=== PATIENT | female | born 1955 | race Caucasian/White ===

== ENCOUNTER → 2022-04-23 08:30 | Outpatient (CLI) | payer OTHER, SELFPAY ==
--- NOTE | ~2022-04-23 | MMUS_ITS ---
EXAMINATION: MM diag jose m implant BI w krystal, US breast BI complete HISTORY: Bilateral dimpling; history of 3 sets of implants. History of keloids. TECHNIQUE: Implant displaced ML, MLO and CC 3-D tomosynthesis images of both breasts were performed a nd synthetic 2-D images were generated. Implant ML, MLO and CC views of both breasts. CAD analysis wa s submitted and interpreted. High resolution complete bilateral breast ultrasound examination includi ng all 4 quadrants and subareolar areas was performed. COMPARISON: None BREAST PARENCHYMAL COMPOSITION: There are scattered areas of fibroglandular density. FINDINGS: MAMMOGRAPHIC FINDINGS: There is bilateral retraction in the inferior subareolar areas. No suspicious mass or architectural d istortion is noted otherwise. No malignant calcification, skin thickening. ULTRASOUND: Bilateral augmentation mammoplasty. No suspicious mass, shadowing or suspicious vascularity of either breast is detected. IMPRESSION: 1. No mammographic or sonographic evidence of malignant breast mass is detected despite presence of b ilateral infra-areolar areas 2. Routine annual mammographic screening is recommended BI-RADS Category 2: Benign finding(s). Reviewed, dictated and finalized at location A. OMATIC COURIER IMPRESSION: 1. No mammographic or sonographic evidence of malignant breast mass is detected despite presence of bilateral infra-areolar areas 2. Routine annual mammographic screening is recommended BI-RADS Category 2: Benign finding(s).
== END ==
PROVIDERS: PCP Internal Medicine; Visit Provider Obstetrics & Gynecology Gynecology
DX: N64.59 Other signs and symptoms in breast (principal)
CPT/HCPCS: 76641; 77062; 77066; G0279

== ENCOUNTER 2022-06-10 09:54 | Emergency (ER) | payer OTHER, SELFPAY ==
--- NOTE | ~2022-06-10 | XR_ITS ---
XR hip RT min 2V DATE: 06/10/2022 10:59 INDICATION: Generalized hip pain for 2 weeks. No injury. TECHNIQUE: AP and lateral views of right hip COMPARISON: None FINDINGS: The right sacroiliac joint and pubic symphysis are intact. Right hip joint space appears we ll preserved. No fracture, dislocation, avascular necrosis or bone destruction of the right hip. IMPRESSION: No significant abnormality Reviewed, dictated and finalized at location B. IMPRESSION: No significant abnormality
[2022-06-10 10:02] VITALS: BP 104/51; PULSE 82; RESP 16; TEMP 36.6; O2SAT 98
[2022-06-10 11:06] VITALS: BP 114/64; PULSE 80; RESP 18; TEMP 36.6; O2SAT 100
--- NOTE | 2022-06-10 11:50 | ED.GENADULT ---
HPI - General Adult General Chief complaint: Extremity Injury, Lower <Randal Arredondo PA-C - Last Filed: 06/10/22 14:11> Stated complaint: hip pain <Randal Arredondo PA-C - Last Filed: 06/10/22 14:11> Time Seen by Provider: 06/10/22 10:46 <Randal Arredondo PA-C - Last Filed: 06/10/22 14:11> Source: patient <Randal Arredondo PA-C - Last Filed: 06/10/22 14:11> Mode of arrival: ambulatory <RAJESH Wilkins Last Filed: 06/10/22 14:11> Limitations: no limitations <Randal Arredondo PA-C - Last Filed: 06/10/22 14:11> History of Present Illness HPI narrative: This is a 67-year-old female with PMH of osteoporosis who presents to the ED with chief complaint of right hip pain x2 weeks. Denies any injury or trauma. Patient states she is able to ambulate but it is painful at times. Reports taking Advil at home with minimal relief. Reports that it is a muscle like pain in the thigh anteriorly and posteriorly. States that it is worse when she sits on soft surfaces and better when she sits on hard surfaces. She has a history of a left hip fracture and is looking to rule out any fractures today with her history of osteoporosis. She also has a history of sciatica and arthritis in the hands and states that it does not feel like those things. <Randal Arredondo PA-C - Last Filed: 06/10/22 14:11> Related Data Allergies/adverse reactions: Allergies Allergy/AdvReac Type Severity Reaction Status Date / Time No Known Allergies Allergy Verified 06/10/22 11:10 <Randal Arredondo PA-C - Last Filed: 06/10/22 14:11> Review of Systems Review of Systems: CONSTITUTIONAL: Denies fever, chills, or sweats. SKIN: Denies rash or itching. Denies wounds or erythema. Denies bruising. MUSCULOSKELETAL: See HPI NEUROLOGIC: Denies headache, numbness, dizziness, or weakness. PSYCHIATRIC: Denies anxiety or depression. <Randal Arredondo PA-C - Last Filed: 06/10/22 14:11> Exam Narrative: GENERAL: Well-appearing, well-nourished, and in no acute distress. EXTREMITIES: Right hip: Full active range of motion. Somewhat tender to the lateral trochanteric area. No overt skin changes or bruising. Left hip: Benign. MSK exam is otherwise benign. Normal range of motion. No edema throughout the bilateral lower extremities. She is ambulatory. SKIN: Warm, dry, no rash. No erythema. NEURO: Alert and oriented x3. No focal deficits. PSYCH: Normal mood and affect. <Randal Arredondo PA-C - Last Filed: 06/10/22 14:11> Course JAPANESE INTERPRETER/PA Physician Supervision This visit was performed by both a physician and an APC. I performed all aspects of the MDM as documented. <Francisco Lopez MD - Last Filed: 06/10/22 19:23> Vital Signs Vital signs: Vital Signs Temperature 97.9 F 06/10/22 10:02 Pulse Rate 82 06/10/22 10:02 Respiratory Rate 16 06/10/22 10:02 Blood Pressure 104/51 L 06/10/22 10:02 Pulse Oximetry 98 06/10/22 10:02 Oxygen Delivery Room Air 06/10/22 10:02 Temperature 97.9 F 06/10/22 11:06 Pulse Rate 80 06/10/22 11:06 Respiratory Rate 18 06/10/22 11:06 Blood Pressure 114/64 06/10/22 11:06 Pulse Oximetry 100 06/10/22 11:06 Oxygen Delivery Room Air 06/10/22 11:06 <Randal Arredondo PA-C - Last Filed: 06/10/22 14:11> Vital Signs Temperature 97.9 F 06/10/22 10:02 Pulse Rate 82 06/10/22 10:02 Respiratory Rate 16 06/10/22 10:02 Blood Pressure 104/51 L 06/10/22 10:02 Pulse Oximetry 98 06/10/22 10:02 Oxygen Delivery Room Air 06/10/22 10:02 Temperature 97.9 F 06/10/22 11:06 Pulse Rate 80 06/10/22 11:06 Respiratory Rate 18 06/10/22 11:06 Blood Pressure 114/64 06/10/22 11:06 Pulse Oximetry 100 06/10/22 11:06 Oxygen Delivery Room Air 06/10/22 11:06 <Francisco Lopez MD - Last Filed: 06/10/22 19:23> Medical Decision Making MDM Narrative Medical decision making narrative: This is a 67-year-old female presents the to the ED wit
== END 2022-06-10 12:13 | disposition home or self-care (01) ==
PROVIDERS: Emergency Provider Physician Assistant; PCP Internal Medicine
DX: M79.651 Pain in right thigh (principal)
CPT/HCPCS: 73502; 99283

== ENCOUNTER 2023-03-06 08:09 | Emergency (ER) | payer OTHER, SELFPAY ==
--- NOTE | ~2023-03-06 | XR_ITS ---
XR chest 1V portable DATE: 03/06/2023 08:59 INDICATION: Cough TECHNIQUE: Portable AP chest on 03/06/2023 at 0854 hours COMPARISON: None FINDINGS: Normal heart size. Aortic arch calcification. No hilar or mediastinal enlargement. The lungs appear moderately hyperinflated but clear of infiltrate or consolidation. No pleural effusi on. No pneumothorax. Diffuse osteopenia. Dextroscoliosis of the thoracic spine. IMPRESSION: No active cardiopulmonary disease Moderate hyperinflation Aortic calcification Osteopenia Reviewed, dictated and finalized at location L. E PRACTICAL
[2023-03-06 08:13] VITALS: BP 134/57; PULSE 88; RESP 26; TEMP 36.4; O2SAT 98
[2023-03-06 08:28] VITALS: O2SAT 98
[2023-03-06 09:40] LABS: Influenza A QL RT-PCR Negative (Negative); Influenza B QL RT-PCR Negative (Negative); RSV RNA, RT-PCR Positive (Negative); SARS-CoV-2 RNA PCR Negative (Negative)
[2023-03-06] MEDS: IPRATROPIUM BR 0.02% INH SOLN 0.5 MG/2.5 ML VIAL INHALATION (09:49)
[2023-03-06 09:50] VITALS: PULSE 73; RESP 22
[2023-03-06] MEDS: ALBUTEROL SULFATE NEB 2.5 MG/3 ML INH INHALATION (09:50)
[2023-03-06 10:03] VITALS: PULSE 85; RESP 16
--- NOTE | 2023-03-06 10:07 | ED.GENADULT ---
HPI - General Adult General Chief complaint: Upper Respiratory Infection Stated complaint: SICK X 2 WEEKS Time Seen by Provider: 03/06/23 08:27 History of Present Illness HPI narrative: Patient is a 67-year-old female who presents ER with cough for 2 weeks. She has night sweats. No chest pain chest pressure. Cough is nonproductive but feels like it settled in her chest. No exertional dyspnea. No loss consciousness. Related Data Home Medications Medication Instructions Recorded Confirmed alprazolam 0.5 mg tablet (Xanax) 0.5 mg PO BID 10/01/22 03/06/23 buspirone 30 mg tablet 30 mg PO BID 10/01/22 03/06/23 denosumab 60 mg/mL subcutaneous 60 mg subcut [id number] 10/01/22 03/06/23 syringe (Prolia) escitalopram oxalate 20 mg tablet 20 mg PO DAILY 10/01/22 03/06/23 (Lexapro) lamotrigine 25 mg tablet 25 mg PO DAILY 10/01/22 03/06/23 lithium carbonate 450 mg 450 mg PO DAILY 10/01/22 03/06/23 tablet,extended release nortriptyline 25 mg capsule 25 mg PO BID 10/01/22 03/06/23 omeprazole 40 mg capsule,delayed 40 mg PO DAILY 10/01/22 03/06/23 release Allergies Allergy/AdvReac Type Severity Reaction Status Date / Time codeine Allergy Nausea Verified 03/06/23 08:25 erythromycin Allergy Other Uncoded 03/06/23 08:25 Review of Systems Constitutional: Constitutional: Denies chills and Denies fever(s) Comments: + night sweats ENT: Denies nasal congestion and Reports sore throat Respiratory: Respiratory: Reports chest congestion, Reports cough, Denies dyspnea and Reports wheezing [facility] Past Medical History Medical History (Updated 03/06/23 @ 18:04 by Francisco Lopez MD) Irritable bowel syndrome Family History Family History (Updated 10/01/22 @ 08:24 by Alondra Infante CMA) Father Cancer Father Hypertension Depression Heart disease Cerebrovascular accident Mother Asthma Thyroid disorder Other Diabetes mellitus Social History Social History (Updated 10/01/22 @ 08:10 by Alondra Infante CMA) Smoking status: Never smoker Alcohol intake: never Substance use: never Substance use type: does not use Lack of Transportation: No Lack of Food: Never True Current Housing: I Have Housing Concerned About Future Housing: No Difficulty Paying Gas/Electric Bills: No Difficulty Paying for Meds: No Currently Unemployed: No Education: High School Diploma/GED Exam Narrative: GENERAL: Well-appearing, well-nourished, and in no acute distress. HEAD: Normocephalic, atraumatic. CHEST: Basilar rales/ wheezing with coughing but otherwise clear. No respiratory distress. HEART: Regular rate and rhythm. Normal peripheral pulses. ABDOMEN: Soft, nontender, nondistended. EXTREMITIES: Normal range of motion. No edema. SKIN: Warm, dry, no rash. NEURO: Alert and oriented x3. PSYCH: Normal mood and affect. Course Course Emergency Course: discussed diagnosis and treatment plan. Improved coughing with nebulizer treatment. Discharge with steroids and albuterol. Vital Signs Vital signs: Vital Signs Temperature 97.5 F L 03/06/23 08:13 Pulse Rate 88 03/06/23 08:13 Respiratory Rate 26 H 03/06/23 08:13 Blood Pressure 134/57 L 03/06/23 08:13 Pulse Oximetry 98 03/06/23 08:13 Oxygen Delivery Room Air 03/06/23 08:13 Temperature 98.6 F 03/06/23 10:19 Pulse Rate 81 03/06/23 10:19 Respiratory Rate 16 03/06/23 10:19 Blood Pressure 120/59 L 03/06/23 10:19 Pulse Oximetry 98 03/06/23 10:19 Oxygen Delivery Room Air 03/06/23 08:28 Medical Decision Making Vital Signs Vital Signs: Vital Signs Temperature 97.5 F L 03/06/23 08:13 Pulse Rate 88 03/06/23 08:13 Respiratory Rate 26 H 03/06/23 08:13 Blood Pressure 134/57 L 03/06/23 08:13 Pulse Oximetry 98 03/06/23 08:13 Oxygen Delivery Room Air 03/06/23 08:13 Temperature 98.6 F 03/06/23 10:19 Pulse Rate 81 03/06/23 10:19 Respiratory Rate 16 03/06/23 10:1
[2023-03-06 10:19] VITALS: BP 120/59; PULSE 81; RESP 16; TEMP 37; O2SAT 98
== END 2023-03-06 10:21 | disposition home or self-care (01) ==
PROVIDERS: Emergency Provider Emergency Medicine
DX: J20.5 Acute bronchitis due to respiratory syncytial virus (principal); Z20.822 Contact with and (suspected) exposure to COVID-19; K58.9 Irritable bowel syndrome, unspecified; M85.88 Other specified disorders of bone density and structure, other site; I70.0 Atherosclerosis of aorta
CPT/HCPCS: 71045; 87637; 94640; 99283

== ENCOUNTER 2024-07-13 11:10 | Outpatient (CLI) | payer OTHER, SELFPAY ==
--- NOTE | ~2024-07-13 | XR_ITS ---
Left foot Technique: AP, oblique, and lateral views were obtained. Clinical History: Pain Findings: No acute fracture or dislocation is seen. Osseous alignment is anatomic. There is degenerat reese change at the interphalangeal joint of the great toe. Soft tissues are unremarkable. Impression: Degenerative change of the interphalangeal joint of the great toe. Reviewed, dictated and finalized at location . Impression: Degenerative change of the interphalangeal joint of the great toe.
--- OUTSIDE RECORDS SUMMARY | 2024-07-13 11:18 | XMS_ITS | Encounter Summary ---
Author Organization [facility] Address [address] [place] [address] Care Team Providers Care Consulting Technical Director Name Role Phone Hardy Child MD Unavailable Jose Coelho MD Unavailable [phone] Italia Villaseñor MD Unavailable Ryder Segundo MD Unavailable [phone] Dale Abreu MD Primary Care Provider Mira Daly MD Unavailable Pcp, [facility] Primary Care Provider Unavailable Luis Enrique Jarquin MD Primary Care Provider [phone] Luis Enrique Jarquin MD Unavailable [phone] German Escalante Unavailable German Escalante Unavailable Marisel Posada Unavailable [phone] Encounter Details Date Type Department Care Team (Late st Contact Info) Description 10/21/2022 Telephone [facility] - Centralized Scheduling [address] [place] [id number] Mira Garcia MD [address] [place] [address] Social History Tobacco Use Types Packs/Day Years Used Date Smoking Tobacco: Never Smokeless Tobacco: Never Alcohol Use Standard Drinks/Week Comments No 0 (1 standard drink = 0.6 oz pur e alcohol) PHQ-2 Answer Date Recorded PHQ2 TOTAL SCORE 0 03/27/2022 Comments No Sex and Gender Information Value Date Recorded Sex Assigned at Not on file Legal 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 Gender Identity Not on file Sexual Orientation Not on file 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 Author Yearly PCP visit Lifestyle No Ermelinda Mercado, REAL ESTATE UNDERWRITER documented as of this encounter Visit Diagnoses Not on filedocumented in this encounter Care Teams Consulting Technical Director Relationship Specialty Start Date End Date Dale Abreu MD [facility] [address] PCP - General Internal Medicine 04/25/21 04/02/23 Pcp, [facility] PCP - General 04/03/23 05/01/23 Luis Enrique Jarquin MD [address] [place] [address] [place] [id number] PCP - General Internal Medicine 05/02/23 Luis Enrique Jarquin MD [address] [place] [address] [place] [phone] PCP - Attributed-Essence MA [facility] 02/24/23 Hardy Child MD [address] [place] [address] Psychiatry 06/09/17 Jose Coelho MD [address] [place] [phone] Endocrinology 06/09/17 Italia Villaseñor MD [address] [facility] [address] [place] [phone] Gastroenterology 03/15/20 [place] [address] [facility] [address] [place] [address] Otolaryngology 03/21/21 Mira Daly MD [address] [place] [address] Physician Obstetrics and Gynecology 03/27/22 German Escalante Care Coordination Specialist Care Management 08/04/23 08/04/23 German Escalante Care Coordination Specialist Care Management 08/06/23 08/06/23 Marisel Posada Care Coordination Specialist Care Management 02/13/24 02/13/24 documented as of this encounter
--- OUTSIDE RECORDS SUMMARY | 2024-07-13 11:18 | XMS_ITS | Clinical Summary ---
Author Organization [facility] Address [address] [place] [address] Care Team Providers Care Brim Presser Name Role Phone Jose Blanco MD Primary Care Provider [phone] Edmundo Gary MD Unavailable [phone] Allergies Active Allergy Reactions Criticality Noted Date Comments Codeine Nausea & Vomiting,Nausea only Low 2016 Erythromycin Nausea & Vomiting Low 04/10/2016 Medications escitalopram (LEXAPRO) 20 mg tablet 20 mg. 0 0 08/11/19 14 Active Additional Information Patient not taking.Reported on 03/24/2024 busPIRone (BUSPAR) 30 mg tablet 30 mg. 0 0 08/11/19 14 Active lamoTRIgine (LaMICtal) 25 mg tablet take 1 tablet by oral route 2 times every day 0 0 08/24/19 15 Active lithium ER (ESKALITH) 450 mg CR tablet 450 mg. 0 0 08/11/19 14 Active nortriptyline (PAMELOR) 25 mg capsule 12/20/19 17 Active omeprazole (PriLOSEC) 40 mg capsule 12/20/19 17 Active cholecalciferol (VITAMIN D-3) 91453 unit capsule Take 1,000 Units by mouth daily Pt takes 1000 international units daily Active cetirizine (ZyrTEC) 10 mg tablet daily Active hyoscyamine ER (LEVBID) 0.375 mg 12 hr tablet Take 1 tablet (0.375 mg total) by mouth every 12 (twelve) hours as needed 11/29/19 23 Active ondansetron ODT (ZOFRAN-ODT) 8 mg disintegrating tablet DISSOLVE ONE TABLET ON THE TONGUE THREE TIMES DAILY 01/23/20 23 Active scopolamine 1 mg over 3 days patch 3 day APPLY 1 PATCH TOPICALLY TO THE SKIN EVERY 72 HOURS NEEDED 12/01/19 23 Active azithromycin (ZITHROMAX) 250 mg tablet TAKE 2 TABLETS BY MOUTH TODAY, THEN TAKE 1 TABLET DAILY FOR 4 DAYS DIRECTED 03/04/19 25 Active bisacodyl EC (DULCOLAX EC) 5 mg EC tablet PLEASE SEE ATTACHED FOR DETAILED DIRECTIONS 07/02/19 24 Active methylPREDNISolone (MEDROL) 4 mg tablet Take by mouth as directed 12/18/19 24 Active methylPREDNISolone (MEDROL DOSEPACK) 4 mg Dosepack TAKE 6 TABLETS ON DAY 1 DIRECTED ON PACKAGE AND DECREASE BY 1 TAB EACH DAY FOR A TOTAL OF 6 DAYS 12/18/19 24 Active polyethylene glycol (MIRALAX) 17 gram/dose bulk powder PLEASE SEE ATTACHED FOR DETAILED DIRECTIONS 07/02/19 24 Active Active Problems Problem Noted Date Diagnosed Date Osteoporosis 11/11/2017 Bipolar affective disorder 08/10/2013 Overview (05/30/2016): Bipolar reaction Mixed anxiety depressive disorder 08/10/2013 Overview (05/30/2016): Anxiety depression Encounters Date Type Department Care Team Description 05/07/2024 9:00 AM CDT Infusion [facility] [address] [place] [address] Advanced Medicine [address] [place] [phone] Osteoporosis, unspecified osteoporosis type, unspecified pathological fracture presence (Primary Dx); Age-related osteoporosis without current pathological fracture 05/03/2024 Orders Only [facility] Special[facility] Infusion [facility] [address] [facility] Advanced Medicine [address] [place] [address] Jaime Sandy RN 04/30/2024 12:00 PM CONE WORKER [facility] ([facility]) [address] [place] [phone] Age-related osteoporosis without current pathological fracture 04/28/2024 Telephone [facility]fusion [facility] [address] [facility] 7th [place] [address] Kaila Braun RN from Last 3 Months Immunizations Immunization Administration Dates Next Due Moderna SARS-CoV-2 Monovalent Vaccination (12+ Y RS) 08/16/2020,07/19/2020 Surgical History Surgery Date Site/Laterality Comments HIP SURGERY OOPHORECTOMY SECTION MASTOIDECTOMY TEMPOROMANDIBULAR JOINT ARTHROPLASTY FRACTURE SURGERY Left hip Medical History Medical History Date Comments Bipolar 1 disorder (HCC) Anxiety Menopause ovarian failure Osteoporosis GERD (gastroesophageal reflux disease) Other specified anxiety disorders Depression with anxiety - (Added by TW Conv) Personal history of diseases of the blood and blood-forming organs and certain disorders involving the immune mechanism History of an emia - (Added by TW Conv) Personal history of healed t raumatic fracture History of fracture of hip - (Added by TW Conv) Personal history of healed t raumatic fracture History of fracture of lower extremity - (Added by TW Conv) Disease of intestine Bowel troub le - (Added by TW Conv) Arthritis History of transfusion 1985 Family History Medical History Relation Name Comments Osteoporosis Mother Other Other 1 No family histo ry of Cancer, breast; Other Other 2 No family histo ry of Cancer, cervical; Other Other 3 No family histo ry of Cancer, colon; Other Other 4 No family histo ry of Cancer, uterine; Osteoporosis Sister Hip fracture Neg Hx Relation Name Status Comments Mother Other 1 Other 2 Other 3 Other 4 Sister Social History Tobacco Use Types Packs/Day Years Used Date Smoking Tobacco: Never Smokeless Tobacco: Never Alcohol Use Standard Drinks/Week Comments No 0 (1 standard drink = 0.6 oz pur e alcohol) Hunger Vital Sign Answer Date Recorded Within the past 12 months, y ou worried that your food would run out before you got the money to buy more. Never true 05/08/19 25 Within the past 12 months, t he food you bought just didn't last and you didn't have money to get more. Never true 05/07/2024 Personal Safety Answer Date Recorded Have you ever been in or are you currently in a harmful physical or emotional relationship or is someone making you feel afraid or unsafe? Denies 05/07/2024 Comments No Sex and Gender Information Value Date Recorded Sex Assigned at Not on file Legal Sex Female 1:35 AM CONE WORKER Gender Identity Female 12/29/2017 10:13 AM CONE WORKER Sexual Orientation Not on file Obstetrics History Para Term AB IAB SAB Ectopic Multiple Livin g Live Births 4 4 Date Outcome GA Total Labor Labor/2nd/3rd Weight Sex Type Anes PTL Sharmila A1 A5 Name Clin Para Para Para Para Last Filed Vital Signs Vital Sign Reading Time Taken Comments Blood Pressure 122/52 05/07/2024 9:50 AM CDT Pulse 58 05/07/2024 9:50 AM CDT Temperature 36.2 C (97.2 F) 05/07/2024 8:44 AM CDT Respiratory Rate 16 05/07/2024 9:50 AM CDT Oxygen Saturation 100% 05/07/2024 9:50 AM CDT Inhaled Oxygen Concentration - - Weight 49.1 kg (108 lb 3.2 oz) 05/07/2024 8:44 A M CDT Height 162.6 cm (5' 4 ) 03/24/2024 10:29 AM CONE WORKER Body Mass Index 18.57 03/24/2024 10:29 AM CONE WORKER Plan of Treatment Health Maintenance Due Date Last Done Comments Depression Screening 1955 Fall Risk Assessment 1955 Hepatitis C Screening 1955 Hepatitis B Screening 05/23/1975 Pneumococcal vaccine 65+ (1 of 1 - PCV) 05/23/2007 Breast Cancer Screening-Mammogram 03/24/2020 03/24/2019, 12/27/2016, 12/27/2016, Additional history exists Well Visit 65+ 2022 12/27/2016 Covid-19 Vaccine (3 - 2023-2 5 season) 2023 08/16/2020, 07/19/2020 Influenza Vaccine (Season Ended) 2024 01/27/2022, 12/08/2021, 12/06/2020, Additional history exists DTaP/Tdap/Td Vaccine (3 - Td or Tdap) 11/10/2024 11/10/2014, 10/25/2014 Osteoporosis Screening-Bone Density Scan 03/24/2026 03/24/2024, 02/11/2023, 01/22/2022, Additional history exists Colon Cancer Screening-Colonoscopy 07/25/2026 07/25/2016 Colon Cancer Screening-CT Colonography Discontinued 07/25/2016 Colon Cancer Screening-DNA Stool Discontinued 07/26/19 17 Colon Cancer Screening-FIT Discontinued 07/25/2016 Colon Cancer Screening-Sigmoidoscopy Discontinued 07/25/2016 Zoster Vaccine Completed 09/01/2019, 03/15/2019 Procedures Procedure Name Priority Date/Time Associated Diagnosis Comments EGFR Routine 04/30/2024 11:12 AM CONE WORKER Age-related osteoporosis without current pathological fracture CREATININE Routine 04/30/2024 11:12 AM CONE WORKER Age-related osteoporosis without current pathological fracture DEXA TBS AXIAL SKELETON BONE DENSITY 1 OR MORE SITES Schedule Routine, Read Routine (OP Routine) 03/24/2024 10:39 AM CONE WORKER Age-related osteoporosis without current pathological fracture HM MAMMOGRAPHY Routine 12/27/2016 HM COLONOSCOPY Routine 07/25/2016 from Last 3 Months or Most Recently Relevant to Health Maintenance Results * (ABNORMAL) eGFR (04/30/2024 11:12 AM CONE WORKER) eGFR 58(L) >=60 mL/min/1. 73 m2 Comment: Interpretive Data Reference Interval Normal >/= 90 mL/min/1.73m2 Mildly decreased* 60 - 89 mL/min/1.73m2 Mildly to moderately decreased 45 - 59 mL/min/1.73m2 Moderately to severely decreased 30 - 44 mL/min/1.73m2 Severely decreased 15 - 29 mL/min/1.73m2 Kidney Failure < 15 mL/min/1.73m2 *Relative to young adult level Estimated glomerular filtration rate is determined by the 2020 CKD-EPI equation recommended by the National Kidney Foundation (A Unifying Approach to GFR Estimation: Recommendations of the NKF-ASK Task Force on Reassessing the Inclusion of Race in Diagnosing Kidney Disease, JASN 202). The CKD-EPI equation should not be used for patients with unstable renal function and has not been validated in children and those over 70. Current interpretive data was last reviewed 2020. Blood 04/30/2024 11:1 2 AM CONE WORKER 04/30/2024 11:28 AM CONE WORKER Laila Frederick NP LAB BLOOD ORDERABLES Final Re sult Performing Organization Address City/[facility] Co de Phone Number LEENA MARCH Charanjit [facility] [place] [address] * Creatinine (04/30/2024 11:12 AM CONE WORKER) Creatinine 1.06 0.60 - 1.10 mg/dL Blood 04/30/2024 11:1 2 AM CONE WORKER 04/30/2024 11:28 AM CONE WORKER Laila Frederick NP LAB BLOOD ORDERABLES Final Re sult Performing Organization Address [facility] Co de Phone Number LEENA [facility] [place] [address] * Dexa TBS Axial Skeleton Bone Density 1 or more sites (03/24/2024 10:39 AM CONE WORKER) Anatomical Region Laterality Modality Wrist, Body N/A Radiographic Kiesha ging Narrative 03/24/2024 10:50 AM CONE WORKER Patient Name: Deepail Michaels Date of : 1955 Date of scan: 03/24/2024 Bone mineral density was performed on a [employer] Discovery Densitometer. Based on machine cross-calibration and precision studies the least significant changes of this densitometer is 0.024 g/cm2 at the spine, 0.020 g/cm2 at the total proximal femur, and 0.014g/cm2 at the forearm. HISTORY: This is a 68 y.o. postmenopausal female with a history of osteoporosis and vitamin D deficiency. She reports that she has never smoked. She has never used smokeless tobacco. Currently on treatment with vitamin D and romosozumab ([facility]) and previously treated with risedronate (Actonel), denosumab ([facility]), and hormone replacement therapy. INDICATIONS: Menopause status, treatment monitoring, history of prior left hip fracture, and history of osteoporosis. FINDINGS: BONE MINERAL DENSITY OF THE LUMBAR SPINE Bone Mineral Density (BMD) of the lumbar spine was measured from L1-L4 and the average density was calculated to be 0.769 gm/cm2. This corresponds to a T-score (standard deviations from the mean of young adults) of -2.5. When compared to the previous study of 02/11/2023 there has been a -0.054 gm/cm (-6.5%) decrease in bone density that is considered significant. BONE MINERAL DENSITY OF THE PROXIMAL FEMUR Bone Mineral Density (BMD) of the right hip total was found to be 0.641 gm/cm2. This corresponds to a T-score standard deviations from the mean of young adults of -2.5. Femoral neck is 0.638 gm/cm2 with a T-score (standard deviations from the mean of young adults) of -1.9. When compared to the previous study of 02/11/2023 there has been a -0.086 gm/cm (-11.8%) decrease in bone density that is considered significant. SUMMARY: Bone mineral density shows evidence of osteoporosis and marked increase risk of fracture. There has been a significant decrease in bone density since previous measurement. The lumbar spine Trabecular Bone Score is 1.365 which suggests normal bone microarchitecture, compared to the general population. Final decisions regarding diagnostic or therapeutic recommendations should include BMD, TBS, additional clinical risk factors as well the clinical context of the patient. Please see attached TBS results for further details. ADDITIONAL COMMENTS: Postmenopausal Women and Men Over 50: Diagnostic criteria: Osteoporosis: BMD at or below -2.5 T-score; Osteopenia (low bone mass): BMD between -1.0 and -2.5 T-score. If the patient has a history of a fragility fracture, a fracture that occurred with trauma equivalent to a fall from a standing position or less, then the diagnosis is osteoporosis regardless of bone density. The history and data sections of the bone mineral density scan were prepared by Melissa Richards)(Victorina)() CBDT who is accredited by the International Society of Clinical Densitometry. The overall patient assessment and scan interpretation were performed by Jose Coelho M.D. who is certified by the International Society of Clinical Densitometry. [id number] us Jose Coelho MD IMG DXA PROCEDURES Final Result * MAMMOGRAPHY (12/27/2016) Mammogram Unknown Historical Provider HEALTH MAINTENANCE Final Result * COLONOSCOPY (07/25/2016) Colonoscopy Normal Historical Provider HEALTH MAINTENANCE Final Result from Last 3 Months or Most Recently Relevant to Health Maintenance Insurance [email or web address] [facility] [employer] PPO [employer] CHOICE PPO [employer] CHO[employer] PPO Care Teams Brim Presser Relationship Specialty Start Date End Date Jose Blanco MD [address] [facility] [address] [place] [address] PCP - General Internal Medicine 08/04/20 Edmundo Gary MD [address] [facility] [address] [place] [address] Referring Physician Otolaryngology 08/04/20
--- OUTSIDE RECORDS SUMMARY | 2024-07-13 11:18 | XMS_ITS | Referral Summary ---
Author Organization [facility] Address [address] [place] [address] Care Team Providers Care Christmas Tree Contractor Name Role Phone Jose Blanco MD Primary Care Provider [phone] Edmundo Gary MD Unavailable [phone] Encounters Date Type Department Care Team Description 05/07/2024 9:00 AM CDT Infusion [facility] Special[facility]fusion [facility] [address] [place] [address] Advanced Medicine [address] [place] [phone] Osteoporosis, unspecified osteoporosis type, unspecified pathological fracture presence (Primary Dx); Age-related osteoporosis without current pathological fracture 05/03/2024 Orders Only [facility]fusion [facility] [address] [place] [address] Advanced Medicine [address] [place] [phone] Jaime Sandy RN 04/30/2024 12:00 PM HEEL SEAT POUNDER Lab [facility] Advanced [facility] ([facility]) [address] [place] [phone] Age-related osteoporosis without current pathological fracture 04/28/2024 Telephone [facility] Special[facility]fusion [facility] [address] [place] [address] Advanced Medicine [address] [place] [phone] Kaila Braun, ANJALI from Last 3 Months Allergies Active Allergy Reactions Criticality Noted Date [...] capsule 12/20/19 17 Active cholecalciferol (VITAMIN D-3) 09016 unit capsule Take 1,000 Units by mouth [...] depressive disorder 08/10/2013 Overview (05/30/2016): Anxiety depression Immunizations Immunization Administration Dates Next Due Moderna SARS-CoV-2 Monovalent Vaccination (12+ Y RS) 08/16/2020,07/19/2020 Social History Tobacco Use Types Packs/Day Years [...] on file Legal Sex Female 1:35 AM HEEL SEAT POUNDER Gender Identity Female 12/29/2017 10:13 AM HEEL SEAT POUNDER Sexual Orientation Not on file Last Filed Vital Signs Vital Sign Reading [...] cm (5' 4 ) 03/24/2024 10:29 AM HEEL SEAT POUNDER Body Mass Index 18.57 03/24/2024 10:29 AM HEEL SEAT POUNDER Plan of Treatment Not on file Procedures Procedure Name Priority Date/Time Associated Diagnosis Comments EGFR Routine 04/30/2024 11:12 AM HEEL SEAT POUNDER Age-related osteoporosis without current pathological fracture CREATININE Routine 04/30/2024 11:12 AM HEEL SEAT POUNDER Age-related osteoporosis without current pathological fracture DEXA TBS AXIAL SKELETON BONE DENSITY 1 OR MORE SITES Schedule Routine, Read Routine (OP Routine) 03/24/2024 10:39 AM HEEL SEAT POUNDER Age-related osteoporosis without current pathological fracture MAMMOGRAPHY Routine 12/27/2016 COLONOSCOPY Routine 07/25/2016 from Last 3 Months or Most Recently Relevant to Health Maintenance Results * (ABNORMAL) eGFR (04/30/2024 11:12 AM HEEL SEAT POUNDER) eGFR 58(L) >=60 mL/min/1. 73 m2 Comment: [...] reviewed 2020. Blood 04/30/2024 11:1 2 AM HEEL SEAT POUNDER 04/30/2024 11:28 AM HEEL SEAT POUNDER us Laila Frederick NP LAB BLOOD ORDERABLES Final Re sult LEENA [facility] Department of Laboratories [place], [place] [phone] * Creatinine (04/30/2024 11:12 AM HEEL SEAT POUNDER) Creatinine 1.06 0.60 - 1.10 mg/dL Blood 04/30/2024 11:1 2 AM HEEL SEAT POUNDER 04/30/2024 11:28 AM HEEL SEAT POUNDER us Laila Frederick NP LAB BLOOD ORDERABLES Final Re sult LEENA [facility] Department of [place] [address] * Dexa TBS Axial Skeleton Bone Density 1 or more sites (03/24/2024 10:39 AM HEEL SEAT POUNDER) Anatomical Region Laterality Modality Wrist, Body N/A Radiographic Kiesha ging Narrative 03/24/2024 10:50 AM HEEL SEAT POUNDER Patient Name: Deepali Michaels Date of : 1955 Date of scan: 03/24/2024 Bone mineral density was performed on a [employer] Discovery Densitometer. Based on machine cross-calibration and [...] on treatment with vitamin D and romosozumab ([facility]) and previously treated with risedronate (Actonel), denosumab [...] mineral density scan were prepared by Melissa Kim(Luis)(Victorina)(BD) CBDT who is accredited by the International Society of Clinical Densitometry. The overall patient assessment and scan interpretation were performed by Jose Coelho M.D. who is certified by the International Society of Clinical Densitometry. [id number] Jose Coelho MD IMG DXA PROCEDURES Final Result * MAMMOGRAPHY (12/27/2016) Pathologist [facility] Mammogram Unknown Historical Provider HEALTH MAINTENANCE Final Result * COLONOSCOPY (07/25/2016) Pathologist Critical access hospital Colonoscopy Normal Historical Provider HEALTH MAINTENANCE Final Result from Last 3 Months or Most Recently Relevant to Health Maintenance Insurance [employer] [facility]ESS [facility] PPO [facility] PPO [employer]VANT[employer] CHOICE PPO [employer] CHO[employer] PPO Care Teams Christmas Tree Contractor Relationship Specialty Start Date End Date Jose Blanco MD [address] [facility] [address] [place] [address] PCP - General Internal Medicine 08/04/20 Edmundo Gary MD [address] [facility] [address], [place] [address] Referring Physician Otolaryngology 08/04/20
--- OUTSIDE RECORDS SUMMARY | 2024-07-13 11:18 | XMS_ITS | Clinical Summary ---
Author Organization [facility] Address [address] [facility] [place] [address] Care Team Providers Care Fruit Grader Operator Name Role Phone Hardy Child MD Unavailable Jose Coelho MD Unavailable [phone] Italia Villaseñor MD Unavailable Ryder Segundo MD Unavailable Mira Daly MD Unavailable Luis Enrique Jarquin MD Primary Care Provider [phone] Luis Enrique Jarquin MD Unavailable [phone] Source Comments [facility],non-owned Affiliates and Associated Physician Practices is amultiple site organization consisting of ambulatory clinics and hospital sitesin [place], [place], [place] and [place]. This disclosure is being madepursuant to the Care Everywhere program and may not contain all information available regarding this patient. Last updated 17.[facility] Allergies Active Allergy Reactions Criticality Noted Date Comments Codeine Nausea and/or Vomiting Low 04/10/2016 Erythromycin Nausea and/or Vomiting Low 04/10/2016 Medications * This document contains information received from the source organization and may not represent a complete record from that organization. * Be aware that medications may not be up to date on this document. Alwaysverify current medications with the patient. lithium CR (ESKALITH CR) 450 MG tablet Take 1 (one) tablet by mouth once daily 08/11/19 14 Active escitalopram (LEXAPRO) 20 MG tablet Take 1 (one) tablet by mouth once daily 08/11/19 14 Active busPIRone (BUSPAR) 30 MG tablet Take 1 (one) tablet by mouth 2 times daily 08/11/19 14 Active lamoTRIgine (LAMICTAL) 25 MG tablet TK 1 T PO BID 1 06/01/19 18 Active vitamine D3 (Cholecalcifero l) 250 MCG (13154 UT) capsule Take 1 (one) capsule by mouth once daily Active scopolamine (TRANSDERM-SCOP ) 1 MG patchIndication s:Nausea without vomiting APPLY 1 PATCH EXTERNALLY TO THE SKIN EVERY 72 HOURS NEEDED 10 patch 1 11/29/19 23 Active hyoscyamine CR 12hr (Levbid) 0.375 MG tabletIndicatio ns:Irritable bowel syndrome, unspecified type TAKE 1 (ONE) TABLET BY MOUTH EVERY 12 HOURS NEEDED FOR SPASMS 180 tablet 1 04/08/19 25 Active omeprazole (PriLOSEC) 40 MG capsuleIndicati ons:Gastroesoph ageal reflux disease with esophagitis without hemorrhage TAKE 1 CAPSULE BY MOUTH BEFORE BREAKFAST 90 capsule 1 06/26/19 25 Active triamcinolone acetonide (Kenalog In Orabase) 0.1 % pasteIndication s:Canker sores oral Take by mouth once daily as needed 5 g 1 07/02/19 25 Active omeprazole (PriLOSEC) 40 MG capsuleIndicati ons:Gastroesoph ageal reflux disease with esophagitis without hemorrhage TAKE 1 CAPSULE BY MOUTH BEFORE BREAKFAST 90 capsule 1 10/10/19 24 025 Discontinued triamcinolone acetonide (Kenalog In Orabase) 0.1 % pasteIndication s:Canker sores oral prn 5 g 3 06/02/19 25 025 Discontinued Active Problems Problem Noted Date Diagnosed Date Low weight 06/01/2024 Bipolar affective disorder, remission status uns pecified 06/01/2024 Breast implant capsular contracture 12/17/2022 Irritable bowel syndrome with diarrhea 9 Gastroparesis 10/28/2017 Overview (03/15/2020): Recurrent nausea/vomiting Moderate gastroparesis (grade 2) based on 28% retention at 4 hours. Tried bracelets, nortriptyline, dicyclomine, Viberzi, Age-related osteoporosis wit hout current pathological fracture 06/09/2017 Overview (03/15/2020): Took risedronate from 2013 to 2015. Had hip fracture 2015 after fall downstairs. On prolia since March, through Dr. Coelho. Bipolar disorder, in full re mission, most recent episode depressed 06/09/2017 Overview (06/09/2017): Dr. Child Gastroesophageal reflux disease without esophagi tis 06/09/2017 Bilateral hearing loss 06/09/2017 Resolved Problems Problem Noted Date Diagnosed Date Resolved Date Anxiety with depression 06/09/201702/25 Perforated tympanic membrane, left 06/09/2017 03/17/2022 Overview (06/09/2017): Apparently chronic Encounters Date Type Department Care Team Description 06/25/2024 Refill [facility] - GI [address] [facility] [address] [place] [address] Italia Villaseñor MD Refill Request 06/01/2024 11:40 AM CDT Office Visit [facility] Internal Medicine [address] [place] [phone] Luis Enrique Jarquin MD Medicare annual wellness visit, subsequent (Primary Dx); Screening mammogram, encounter for; Gastroesophageal reflux disease without esophagitis; Colon cancer screening; Canker sores oral; Age-related osteoporosis without current pathological fracture; Low weight; Bipolar affective disorder, remission status unspecified (HCC) 06/01/2024 Travel 05/18/2024 Telephone [facility] Internal Medicine [address] [place] [phone] Luis Enrique Jarquin MD Late Cancel 05/10/2024 Telephone [facility] Internal Medicine [address] [place] [phone] Luis Enrique Jarquin MD Scheduling from Last 3 Months Immunizations Immunization Administration Dates Next Due INFLUENZA VACCINE, TRIV. (AF LURIA, FLUZONE TRIVALENT; 6MO+) (IIV3) 12/06/2020 Covid Moderna primary monova lent 12+ yr 0.5mL 08/16/2020,07/19/2020 INFLUENZA VACCINE 01/27/2022,12/08/2021,10/26/19 19 INFLUENZA VACCINE, CELL CULT URE, QUADR. (FLUCELVAX QUADRIVALENT; 6MO+) (CCIIV4) 11/28/2019 PNEUMOCOCCAL PCV20 CONJ VAC IM 05/02/2023 TDAP (7yrs+) 10/25/2014 Zoster Hzv Vacc Recombinant Inj Im 09/01/2019, iNFLUENZA VACCINE, RECOM-HAMMER, QUADR. (FLUBLOCK QUADRIVALENT; 18Y+) (RIV4) 11/05/2017 Family History Medical History Relation Name Comments Diabetes - Type 1 Daughter Cancer - Skin, Melanoma Father Hypertension Father Other - Cardiac Father Cancer - Breast Neg Hx Relation Name Status Comments Daughter Father Social History Tobacco Use Types Packs/Day Years Used Date Smoking Tobacco: Never Smokeless Tobacco: Never Tobacco Cessation:Counseling Given: Yes Alcohol Use Standard Drinks/Week Comments No 0 (1 standard drink = 0.6 oz pur e alcohol) PHQ-2 Answer Date Recorded Patient Health Questionnaire-2 Score 0 06/01/2024 Comments No Sex and Gender Information Value Date Recorded Sex Assigned at Not on file Legal 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 Gender Identity Not on file Sexual Orientation Not on file 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 file Not on file Not on file Last Filed Vital Signs Vital Sign Reading Time Taken Comments Blood Pressure 112/60 06/01/2024 11:39 AM CDT Pulse 73 06/01/2024 11:39 AM CDT Temperature 36.6 C (97.8 F) 06/01/2024 11:39 AM CDT Respiratory Rate 20 12/18/2023 3:19 PM CDT Oxygen Saturation 97% 06/01/2024 11:39 AM CDT Inhaled Oxygen Concentration - - Weight 46.5 kg (102 lb 9.6 oz) 06/01/2024 11:39 AM CDT Height 162.6 cm (5' 4 ) 06/01/2024 11:39 AM CDT Body Mass Index 17.61 06/01/2024 11:39 AM CDT Plan of Treatment Upcoming Encounters Date Type Department Care Team (Late st Contact Info) Description 12/17/2024 11:00 AM CDT Office Visit [facility] - Internal Medicine [address] [place] [address] [place] [address] [place] [address] [address] [place] [address] Health Maintenance Due Date Last Done Comments COLOGUARD (AGES 45-75) - COLON CA SCREENING 1957 CT COLONOGRAPHY - COLON CA SCREENING 1955 FIT - COLON CA SCREENING 1955 FLEX SIG - COLON CA SCREENING 1955 Respiratory Syncytial Virus (RSV) Vaccine Pt: or over 60 yrs (1 - Risk 60-74 years 1-dose series) 2017 MAMMOGRAM 03/24/2021 03/24/2019, 1104/2016, 12/27/2016 (Done Outside Per Report), Additional history exists COVID-19 VACCINE ( season) 2023 08/16/2020, 07/19/2020 COLON MONITORING 03/04/2024 03/04/2019, 08/16/2016 Colorectal Cancer Screening 03/04/2024 DTAP/TDAP/TD VACCINES (2 - Td or Tdap) 10/25/2024 10/25/2014 INFLUENZA VACCINE (Season Ended) 2024 01/27/2022, 12/08/2021, 12/06/2020, Additional history exists MEDICARE AWV 12 MONTHS 06/01/2025 06/01/2024, 05/02/2023 COLONOSCOPY - COLON CA SCREENING 03/04/2029 03/04/2019, 08/16/2016 LIPID TESTING 06/01/2029 06/01/2024, 0307/2023, 04/23/2022, Additional history exists HEPATITIS C SCREENING Completed 06/09/2017 ZOSTER VACCINE Completed 09/01/2019, 03/15/2019 BONE DENSITY TESTING Completed 01/22/2022, 01/15/2021, 01/10/2020, Additional history exists PNEUMOCOCCAL VACCINE 50+ Completed 05/02/2023 HEPATITIS B VACCINE Aged Out No longe r eligible based on patient's age to complete this topic HIB VACCINE Aged Out No longer eligi ble based on patient's age to complete this topic HPV VACCINE Aged Out No longer eligi ble based on patient's age to complete this topic MENINGOCOCCAL (Group B) VACCINE SHARED DECISION-MAKING Aged Out No longer eligible based on patient's age to complete this topic MENINGOCOCCAL GROUPS A/C/Y/W VACCINE Aged Out No longer eligible based on patient's age to complete this topic Goals Goal Patient Goal Type Associated Problems Recent Progress Patient-Stated? Author Yearly PCP visit Lifestyle No Ermelinda Mercado LPN Procedures Procedure Name Priority Date/Time Associated Diagnosis Comments TSH RFLX FREE T4+FREE T3 Routine 06/01/2024 12:18 PM CDT Medicare annual wellness visit, subsequent VITAMIN B12 FOLATE PANEL Routine 06/01/2024 12:18 PM CDT Medicare annual wellness visit, subsequent VITAMIN D 25-HYDROXY Routine 06/01/2024 12:17 PM CDT Medicare annual wellness visit, subsequent LIPID PROFILE Routine 06/01/2024 12:17 PM CDT Medicare annual wellness visit, subsequent COMPREHENSIVE METABOLIC PANEL Routine 06/01/2024 12:17 PM CDT Medicare annual wellness visit, subsequent CBC W AUTO DIFFERENTIAL Routine 06/01/2024 12:17 PM CDT Medicare annual wellness visit, subsequent MAMMO BILAT SCREENING Routine 03/24/2019 8:03 AM WIREWORKER Screening mammogram, encounter for HEPATITIS C ANTIBODY Routine 06/09/2017 4:18 PM CDT Preventative health care Screening for endocrine, metabolic and immunity disorder Lipid screening Need for hepatitis C screening test ENDOSCOPY, COLON, SCREENING Routine 08/16/2016 from Last 3 Months or Most Recently Relevant to Health Maintenance Results * TSH RFLX FREE T4+FREE T3 (06/01/2024 12:18 PM CDT) TSH 1.560 0.450 - 4.500 uIU/mL [facility] INSURANCE BILL Blood BLOOD SPECIMEN / Unknown 06/01/2024 12:18 PM CDT 06/01/2024 Narrative [facility] INSURANCE BILL - 06/02/2024 9:10 AM CDT [facility]formed at: [facility] [id number] Clay Machine Operator: Angel Echols PhD, Phone: [phone] Luis Enrique Jarquin MD LAB - CHEMISTRY ORDERABLES Fi nal Result Performing Organization Address [facility] de Phone Number [employer] INSURANCE BILL [address] [place] [address] * VITAMIN B12 FOLATE PANEL (06/01/2024 12:18 PM CDT) Vitamin B12 956 232 - 1,245 pg/mL [facility] INSURANCE BILL Folate >20.0 >3.0 ng/mL [facility] INSURANCE BILL Comment: A serum folate concentration of less than 3.1 ng/mL is considered to represent clinical deficiency. Blood BLOOD SPECIMEN / Unknown 06/01/2024 12:18 PM CDT 06/01/2024 Narrative [facility] INSURANCE BILL - 06/02/2024 8:12 AM CDT Performed at: [facility] [id number] Clay Machine Operator: Angel Echols PhD, Phone: [phone] Luis Enrique Jarquin MD LAB - CHEMISTRY ORDERABLES Fi nal Result Performing Organization Address [facility] Co de Phone Number [employer] INSURANCE BILL [address] [facility] [place] [address] * VITAMIN D 25-HYDROXY (06/01/2024 12:17 PM CDT) Vitamin D, 25 Hydroxy 67.1 30 - 80 ng/mL [facility] INSURANCE BILL Comment: Vitamin D Status: Deficiency <20 ng/mL Insufficiency 20-30 ng/mL Sufficiency 30-100 ng/mL Toxicity >100 ng/mL Blood BLOOD SPECIMEN / Unknown 06/01/2024 12:17 PM CDT 06/01/2024 Narrative [facility] INSURANCE BILL - 06/01/2024 7:09 PM CDT Performed at: [address] [place] [id number] Clay Machine Operator: Daryl Shah Dr, Phone: [phone] us Luis Enrique Jarquin MD LAB - CHEMISTRY ORDERABLES Fi nal Result [facility] INSURANCE BILL [address] [place] [address] * (ABNORMAL) CBC WITH DIFFERENTIAL (06/01/2024 12:17 PM CDT) WBC 5.5 4.0 - 10.7 x10E9/L [facility] INSURANCE BILL RBC 4.76 3.90 - 5.20 x10E12/L [facility] INSURANCE BILL Hemoglobin 13.7 11.9 - 15.8 g/dL [facility] INSURANCE BILL Hematocrit 43.8 34.8 - 46.1 % [facility] INSURANCE BILL MCV 92.0 80.0 - 98.0 fL [facility] INSURANCE BILL MCH 28.8 26.7 - 33.6 pg [facility] INSURANCE BILL MCHC 31.3(L) 31.7 - 36.3 g/dL [facility] INSURANCE BILL RDW 12.4 11.3 - 14.8 % [facility] INSURANCE BILL Platelet Count 293 150 - 420 x10E9/L [facility] INSURANCE BILL Comment:MPV (CS) 10.2 fL 7.8 -11.4 Granulocytes % 54.6 41.0 - 74.0 % [facility] INSURANCE BILL Lymphocytes % 34.4 17.0 - 47.0 % [facility] INSURANCE BILL Monocytes % 6.7 3.0 - 11.0 % [facility] INSURANCE BILL Eosinophils % 3.4 0.0 - 7.0 % [facility] INSURANCE BILL Basophils % 0.7 0.0 - 1.6 % [facility] INSURANCE BILL Granulocytes Absolute 3.02 1.60 - 7.50 x10E9/L [facility] INSURANCE BILL Lymphocytes Absolute 1.90 1.00 - 4.40 x10E9/L [facility] INSURANCE BILL Monocytes Absolute 0.37 0.15 - 1.00 x10E9/L [facility] INSURANCE BILL Eosinophils Absolute 0.19 0.00 - 0.60 x10E9/L [facility] INSURANCE BILL Basophils Absolute 0.04 0.00 - 0.13 x10E9/L [facility] INSURANCE BILL Immature Granulocytes 0.2 0.0 - 1.0 % [facility] INSURANCE BILL Blood BLOOD SPECIMEN / Unknown 06/01/2024 12:17 PM CDT 06/01/2024 Narrative [facility] INSURANCE BILL - 06/01/2024 6:09 PM CDT Performed at: [address] [place] [id number] Clay Machine Operator: Daryl Shah Dr, Phone: [phone] us uLis Enrique Jarquin MD LAB - HEMATOLOGY ORDERABLES F inal Result [facility] INSURANCE BILL [address] [place] [address] * (ABNORMAL) COMPREHENSIVE METABOLIC PANEL (06/01/2024 12:17 PM CDT) [facility] Glucose 93 70 - 99 mg/dL [facility] INSURANCE BILL BUN 10 7 - 26 mg/dL [facility] INSURANCE BILL Creatinine 1.00 0.57 - 1.11 mg/dL [facility] INSURANCE BILL eGFR by CKD-EPI 62(L) >=90 mL/min/1.7 3 m2 [facility] INSURANCE BILL Sodium 140 136 - 145 mmol/L [facility] INSURANCE BILL Potassium 4.4 3.5 - 5.1 mmol/L [facility] INSURANCE BILL Chloride 106 98 - 107 mmol/L [facility] INSURANCE BILL CO2 29 22 - 29 mmol/L [facility] INSURANCE BILL Calcium 10.1 8.4 - 10.4 mg/dL [facility] INSURANCE BILL Protein Total 7.4 6.4 - 8.3 gm/dL [facility] INSURANCE BILL Albumin 4.6 3.4 - 5.0 gm/dL [facility] INSURANCE BILL Bilirubin Total 0.4 0.2 - 1.2 mg/dL [facility] INSURANCE BILL Alkaline Phosphatase 158(H) 40 - 150 U/L [facility] INSURANCE BILL AST 26 10 - 48 U/L [facility] INSURANCE BILL ALT 18 6 - 57 U/L [facility] INSURANCE BILL Blood BLOOD SPECIMEN / Unknown 06/01/2024 12:17 PM CDT 06/01/2024 Narrative [facility] INSURANCE BILL - 06/01/2024 6:09 PM CDT Performed at: [address] [id number] Clay Machine Operator: Daryl Shah Dr, Phone: [phone] us Luis Enrique Jarquin MD LAB - CHEMISTRY ORDERABLES Fi nal Result [facility] INSURANCE BILL [address] [place] [address] * LIPID PROFILE (06/01/2024 12:17 PM CDT) Cholesterol 156 <200 mg/dL [facility] INSURANCE BILL Triglycerides 83 <150 mg/dL [facility] INSURANCE BILL HDL Cholesterol 52 >40 mg/dL [facility] INSURANCE BILL VLDL Calculated 17 <=30 mg/dL [facility] INSURANCE BILL LDL Calculated 87 <130 mg/dL [facility] INSURANCE BILL Blood BLOOD SPECIMEN / Unknown 06/01/2024 12:17 PM CDT 06/01/2024 Narrative [facility] INSURANCE BILL - 06/01/2024 6:09 PM CDT Performed at: [address] [id number] Clay Machine Operator: Daryl Shah Dr, Phone: [phone] us Luis Enrique Jarquin MD LAB - CHEMISTRY ORDERABLES Fi nal Result [facility] INSURANCE BILL [address] [place] [address] * MAMMO SCREEN BILATERAL (03/24/2019 8:03 AM WIREWORKER) Anatomical Region Laterality Modality Breast Bilateral Mammography 03/24/2019 12:4 3 PM WIREWORKER Impressions 03/24/2019 12:45 PM WIREWORKER No mammographic evidence of malignancy in either breast. ASSESSMENT: BI-RADS category 2, benign findings. RECOMMENDATION: Bilateral screening mammogram in one year. Thank you for allowing us to participate in the care of your patient. [facility] Breast [facility] utilizes [facility] as a reminder system to notify patients of their next recommended mammogram. Reading Radiologist: Mira Meneses MD on 03/24/2019 at 12:45 PM Narrative 03/24/2019 12:45 PM WIREWORKER EXAMINATION: Digital screening mammogram on 03/24/2019. Low-dose full-field digital breast tomosynthesis examination was performed with 3D acquisitions, implant displaced views, and synthetic/reconstructed images. Computer assisted detection was utilized. PRIOR: Multiple prior outside mammograms, most recently 12/27/2016 . FINDINGS: Breast parenchymal density: The breast tissue demonstrates scattered areas of fibroglandular density. Risk assessment calculation: Based on the information provided by your patient, her lifetime risk of breast cancer is average (<15%) . Details regarding risk assessment can be found in [facility] under the media tab. Please note that this information is only as accurate as the data entered by the patient. No suspicious masses, areas of architectural distortion or microcalcifications are evident on 3D images. The subpectoral saline breast implants appear unchanged in contour. There has been no significant interval change since the prior examination. us Jose Blanco MD MAMMO ORDERABLES Final Result * HEPATITIS C ANTIBODY (06/09/2017 4:18 PM CDT) Hepatitis C Antibody Non Reactive Non Reactive [facility] ACCOUNT BILL Comment: Non Reactive - Antibodies to Hepatitis C virus (HCV) were no t detected, result does not exclude early acute HCV infection. FASTING Blood BLOOD SPECIMEN / Unknown 06/09/2017 4:18 PM CDT 06/09/2017 Narrative Resulting Agency Comment [facility] [address] [facility] [phone] us Jose Blanco MD LAB - CHEMISTRY ORDERABLES Fi nal Result [facility] ACCOUNT BILL [address] [place] [address] * ENDOSCOPY, COLON, SCREENING (08/16/2016) us Provider Unknown GI PROCEDURE ORDERABLES Final R esult from Last 3 Months or Most Recently Relevant to Health Maintenance Insurance [employer] MEDICARE ADV PPO Care Teams Fruit Grader Operator Relationship Specialty Start Date End Date Luis Enrique Jarquin MD [address] [place] [address] PCP - General Internal Medicine 05/02/23 Luis Enrique Jarquin MD [address] [place] [address] PCP - Attributed-Essence MA STL 02/24/23 Hardy Child MD [address] [place] [address] Psychiatry 06/09/17 Jose Coelho MD [address] [place] [address] Endocrinology 06/09/17 Italia Villaseñor MD [address] [facility] [address] [place] [phone] Gastroenterology 03/15/20 [place] [address] [facility] [address], [place] [address] Otolaryngology 03/21/21 Mira Daly MD [address] [place] [address] Physician Obstetrics and Gynecology 03/27/22
--- OUTSIDE RECORDS SUMMARY | 2024-07-13 11:19 | XMS_ITS | Encounter Summary ---
Author Organization [facility] Address [address] [place] [address] Care Team Providers Care [employer] Principal Name Role Phone Hardy Child MD Unavailable Jose Coelho MD Unavailable [phone] Italia Villaseñor MD Unavailable Ryder Segundo MD Unavailable [phone] Mira Daly MD Unavailable Luis Enrique Jarquin MD Primary Care Provider [phone] Luis Enrique Jarquin MD Unavailable Reason for Visit * Reason Onset Date Comments Late Cancel 05/18/2024 Encounter Details Date Type Department Care Team (Late st Contact Info) Description 05/18/[address] 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 Gender Identity Not on file Sexual Orientation Not on file Occupation Industry Job Start Date Job End Date [employer] Not on file Not on file Not on file documented as of this encounter Miscellaneous Notes * Telephone Encounter - Samara Child - 05/18/2024 8:02 AM CDT .Deepali Michaels called and cancelled their same day appointment Appointment Date: 05/18/24 Appointment Time: 2:40 If rescheduled: 06/01/2024 Provider: Dorothy Davalos documented in this encounter Plan of Treatment Upcoming Encounters Date Type Department Care Team (Late st Contact Info) Description 12/17/2024 11:00 AM CDT Office Visit [facility] - Internal Medicine [address] [place] [address] [place] [phone] Luis Enrique Jarquin MD [address] [place] [phone] documented as of this encounter Goals Goal Patient Goal Type Associated Problems Recent Progress Patient-Stated? Author Yearly PCP visit Lifestyle No Ermelinda Mercado, JIRA ADMINISTRATOR documented as of this encounter Visit Diagnoses Not on filedocumented in this encounter Care Teams [employer] Principal Relationship Specialty Start Date End Date Luis Enrique Jarquin MD [address] [place] [address] [place] [phone] PCP - General Internal Medicine 05/02/23 Luis Enrique Jarquin MD [address] [place] [address] [place] [phone] PCP - Attributed-Essence [facility] 02/24/23 Hardy Child MD [address] [place] [address] Psychiatry 06/09/17 Jose Coelho MD [address] [place] [address] Endocrinology 06/09/17 Italia Villaseñor MD [address] [facility] [address] [place] [address] Gastroenterology 03/15/20 [place] [address] [facility] [address] [place] [address] Otolaryngology 03/21/21 Mira Daly MD [address] [place] [address] Physician Obstetrics and Gynecology 03/27/22 documented as of this encounter
--- OUTSIDE RECORDS SUMMARY | 2024-07-13 11:19 | XMS_ITS | Encounter Summary ---
Author Organization [facility] Address [address] [place] [address] Care Team Providers Care Reliability Specialist Name Role Phone Hardy Child MD Unavailable [phone] Jose Coelho MD Unavailable [phone] Jarrod Dinero MD, Wolf A [facility] Primary Care Provider [phone] Jarrod Dinero MD, Garrett A Primary Care Provider [facility] Primary Care Provider [phone] Jarrod Dinero MD, Garrett A Primary Care Provider [facility] Primary Care Provider [phone] Italia Villaseñor MD Unavailable Ryder Segundo MD Unavailable [phone] Dale Abreu MD Primary Care Provider [phone] Mira Daly MD Unavailable [phone] Pcp, [facility] Primary Care Provider Unavailable Luis Enrique Jarquin MD Primary Care Provider [phone] Luis Enrique Jarquin MD Unavailable [phone] German Escalante Unavailable German Escalante Unavailable Marisel Posada Unavailable [phone] Encounter Details Date Type Department Care Team (Late Contact Info) Description 07/02/2018 Lab Requisition [facility] DermPath Lab [address] [facility] [place] [address] [place] [address] Social History Tobacco Use Types Packs/Day Years Used Date Smoking Tobacco: Never Smokeless Tobacco: Never Alcohol Use Standard Drinks/Week Comments No 0 (1 standard drink = 0.6 oz pur e alcohol) Comments No Sex and Gender Information Value Date Recorded Sex Assigned at Not on file Legal Sex Female 6:12 AM [employer] Gender Identity Not on file Sexual Orientation Not on file 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 Author Yearly PCP visit Lifestyle No Ermelinda Mercado, [place] documented as of this encounter Procedures Procedure Name Priority Date/Time Associated Diagnosis Comments DERMATOPATHOLOGY Routine 07/01/2018 12:0 0 AM CDT documented in this encounter Results * DERMATOPATHOLOGY (07/01/2018 12:00 AM CDT) Case Report Dermatopathology Report Case: [id number] Authorizing Provider: Otto Whalen MD Collected: 07/01/2018 12:00 AM Pathologist: Yolette Andrews MD Received: 07/02/2018 01:05 PM Specimens: A) - Skin, right midline upper back B) - Skin, right sup scapula 1:24 PM CDT DERMATOPATHOLOGY LABORATORY Final Diagnosis Specimen A. SKIN, right midline upper back: NEUROFIBROMA (D36.10) Specimen B. SKIN, right sup scapula: VELLUS HAIR CYST (L72.0) 1:24 PM CDT DERMATOPATHOLOGY LABORATORY at 1324 CDT Clinical History A: R/O lipoma, BCC. B: R/O sub Q. 1:24 PM CDT DERMATOPATHOLOGY LABORATORY Gross Description Specimen A: Received is one formalin filled container labeled with the patient's name and designated right midline upper back. The specimen consists of a punch excision measuring [id number], bisected. Jar 0. Specimen B: Received is one formalin filled container labeled with the patient's name and designated right sup scapula. The specimen consists of a punch excision measuring [id number], bisected. Jar 0. 1:24 PM CDT DERMATOPATHOLOGY LABORATORY Microscopic Description Specimen A. SKIN, right midline upper back: Sections show a proliferation of spindled and S-shaped cells within the dermis. The stromal collagen is delicate and pale. Specimen B. SKIN, right sup scapula: Within the dermis, there is a space lined by epithelium that resembles normal epidermis and the infundibular portion of the hair follicle. Multiple small hairs are seen in the cyst. 1:24 PM CDT DERMATOPATHOLOGY LABORATORY Disclaimer An external and internal positive and negative controls are appropriate for the histochemical, immunohistochemical and immunofluorescence stain(s) in this case (if any), except where stated explicitly. The performance characteristics of the stain(s) cited in this report were developed and its performance characteristic determined by the Dermatopathology Laboratory at [facility], directed by Dr. Sruthi Combs. These tests need not be, and therefore are not, approved by the [place] Food and Drug Administration. The tests are used for clinical purposes. Billing Codes Specimen Charges Stain Charges 32403 21113 1 1 1:24 PM CDT DERMATOPATHOLOGY LABORATORY Embedded Images 05/10/201 9 1:24 PM CDT DERMATOPATHOLOGY LABORATORY Pathology/Cytology TISSUE SPECIMEN FROM SKIN / Unknown 07/01/2018 07/02/2018 1:05 PM CDT Miscellaneous samples (specimen) TISSUE SPECIMEN FROM SKIN / Unknown 07/01/2018 07/02/2018 1:05 PM CDT Otto Whalen MD LAB - PATHOLOGY/CYTOLOGY ORD ERABLES Final Result DERMATOPATHOLOGY LABORATORY [facility] - Department of Dermatology [address] [facility] [place] [address], [facility] [phone] documented in this encounter Visit Diagnoses Not on filedocumented in this encounter Care Teams Reliability Specialist Relationship Specialty Start Date End Date Wolf Garay Sr., MD PCP - General 07/02/18 07/20/18 Jose Blanco MD [address] [place] [address] PCP - General Internal Medicine 07/21/18 08/02/18 Wolf Garay Sr., MD PCP - General 08/03/18 03/03/19 Jose Blanco MD [address] [place] [address] PCP - General Internal Medicine 03/04/19 04/06/19 Wolf Garay Sr., MD PCP - General 04/07/19 04/13/19 Jose Blanco MD [address] [place] [address] PCP - General Internal Medicine 04/14/19 04/24/21 Dale Abreu MD [address] [place] [address] PCP - General Internal Medicine 04/25/21 04/02/23 Pcp, [facility]- PCP - General 04/03/23 05/01/23 Luis Enrique Jarquin MD [address] [facility] [address] [place] [phone] PCP - General Internal Medicine 05/02/23 Luis Enrique Jarquin MD [address] [facility] [address] [place] [phone] PCP - [facility] [place] [address] 02/24/23 Hardy Child MD [address] [place] [address] Psychiatry 06/09/17 Jose Coelho MD [address] [place] [phone] Endocrinology 06/09/17 Italia Villaseñor MD [address] [facility] [address] [place] [phone] Gastroenterology 03/15/20 [place] [address] [facility] [address], [place] [address] Otolaryngology 03/21/21 Mira Daly MD [address] [place] [address] Physician Obstetrics and Gynecology 03/27/22 German Escalante Care Coordination Specialist Care Management 08/04/23 08/04/23 German Escalante Care Coordination Specialist Care Management 08/06/23 08/06/23 Marisel Posada Care Coordination Specialist Care Management 02/13/24 02/13/24 documented as of this encounter
--- OUTSIDE RECORDS SUMMARY | 2024-07-13 11:19 | XMS_ITS | Patient Health Record ---
Author Organization [employer] [facility] ([address]) Address [address] [place] [address] Care Team Providers Care Reconciling Clerk Name Role Phone Jose Blanco Primary Care Provider UnavailHao Erickson Unavailable [phone] [facility], Provider Unavailable Unavailab le Allergies No Known Allergies Reason For Referral No Information Medications Medication SIG (Take, Route, Frequency, Duration) Notes Start Date End Date Status LAMOTRIGINE 25 mg 1 tab(s) orally once a day for 30 day(s) Active ZYRTEC 10mg 1 tablet PO QD for 3 0 days Active SIT (TRADITIONAL) VARIABLE PER SCHEDULE SC PER SCHEDULE for TO BE DETERMINED *Please review for potential replacement for e-prescription and drug interaction check* Active BUSPAR 15 mg QD *Please review for potential replacement for e-prescription and drug interaction check* Active NASONEX 50 MCG/INH 2 SPRAY(S) INTRANASALLY ONCE A DAY for 30 DAY(S) *Please review for potential replacement for e-prescription and drug interaction check* Active Patanase 665 MCG/INH 2 SPRAY(S) INTRANASALLY 2 TIMES A DAY, PRN for 30 DAY(S) *Please review and pick correct strength-formulat ion from Medispan options. If intended option is not shown, discontinue and re-order from Quick Search* Active AUVI -Q 0.3 mg INJECT 0.3 MG INTRAMUSCULARLY DIRECTED for 30 Active NASAL WASHES N/A DIRECTED INTRANASALLY NEEDED for 30 *Please review for potential replacement for e-prescription and drug interaction check* Active Auvi-Q 0.3 MG/0.3ML 0.3 mg intramuscularly once for 1 dose(s) Active LITHIUM 450 mg 1 tab(s) orally 2 times a day for 30 day(s) Active XANAX 0.5 mg 1 tab(s) orally 3 times a day Active OMEPRAZOLE 40 mg 1 cap(s) orally once a day for 30 day(s) Active ZyrTEC Allergy 10 MG 1 tablet PO QD for 30 days Active Reglan 5 MG 1 tab(s) orally 4 times a day (before meals and at bedtime) for 30 day(s) Active Auvi-Q 0.3 MG/0.3ML INJECT 0.3 MG INTRAMUSCULARLY DIRECTED for 30 Active NORTRIPTYLINE 25 mg 1 cap(s) orally 3 times a day for 30 day(s) Active REGLAN 5 mg 1 tab(s) orally 4 times a day (before meals and at bedtime) for 30 day(s) Active Xanax 0.5 MG 1 tab(s) orally 3 times a day Active PROLIA 60 mg/mL as directed subcutaneously every 6 months for 12 month(s) Active Omeprazole 40 MG 1 cap(s) orally once a day for 30 day(s) Active [place] Carbonate ER 450 MG 1 tab(s) orally 2 times a day for 30 day(s) Active PAZEO 0.7% 1 GTT IN EACH AFFECTED EYE ONCE A DAY for 30 DAY(S) *Please review for potential replacement for e-prescription and drug interaction check* Active Prolia 60 MG/ML as directed subcutaneously every 6 months for 12 month(s) Active AUVI -Q 0.3 mg 0.3 mg intramuscularly once for 1 dose(s) Active ZOFRAN 4 MG 1 TAB(S) ORALLY EVER Y 8 HOURS *Please review for potential replacement for e-prescription and drug interaction check* Active Nortriptyline HCl 25 MG 1 cap(s) orally 3 times a day for 30 day(s) Active PATANASE 665 mcg/inh 2 spray(s) intranasally 2 times a day, prn for 30 day(s) Active lamoTRIgine 25 MG 1 TAB(S) ORALLY ONCE A DAY for 30 DAY(S) *Please review and pick correct strength-formulat ion from [employer] options. If intended option is not shown, discontinue and re-order from Quick Search* Active Immunizations Vaccine Route Administration Date Status Comme nts Flucelvax Unknown 11/28/2019 Administered Influenza Unknown 05/20/2018 Administered Portal Isidra sarmiento Social History Tobacco Use: Social History Observation Description Date Details (start date - stop date) Never Smoker NA - NA Smoking Smart Form: Question Answer Notes Are you a: never smoker Additional Findings:Tobacco Non-User Current non -smoker Problems Problem Type SNOMED Code ICD Code Onset Dates Problem Status W/U Status Risk Notes Problem Wheezing (02816547) Wheezing (R06.2) Active confirmed Problem Chronic allergic conjunctivitis (48222072) Other chronic allergic conjunctivitis (H10.45) Active confirmed Problem Gastro-esophageal reflux disease without esophagitis (404591047) Gastro-esophageal reflux disease without esophagitis (K21.9) Active confirmed Problem Gastroparesis (513143274) Gastroparesis (K31.84) Active confirmed Problem Irritable bowel syndrome with diarrhea (444745947) Irritable bowel syndrome with diarrhea (K58.0) Active confirmed Problem Nausea and vomiting (51233130) Nausea with vomiting, unspecified (R11.2) Active confirmed Problem Allergic rhinitis caused by pollen (disorder) (04822647) Allergic rhinitis due to pollen (J30.1) Active confirmed Problem Allergic rhinitis caused by animal hair and dander (385176930939944) Allergic rhinitis due to animal (cat) (dog) hair and dander (J30.81) Active confirmed Problem Allergic rhinitis (97747643) Other allergic rhinitis (J30.89) Active confirmed Problem Chronic allergic conjunctivitis (59741519) Other chronic allergic conjunctivitis (H10.45) Active confirmed Encounters Encounter [facility] Date [facility] [address] [facility] Provider [facility]Z-Migration Plan Of Treatment No Information Insurance Providers Payer Name Payer Address Payer Phone Subscriber Number Group Number Insured Name Patient Relationship to Insured Coverage Start Date Coverage End Date Benefit Administrative [employer] [facility] [address] [place] [address] [id number] Deepali Michaels Self - patient is the insured Medical (General) History Medical History History ICD Code Bipolar disorder, unspecified Anxiety disorder, unspecified Irritable bowel syndrome with diarrhea Allergic rhinitis, unspecified Other chronic allergic conjunctivitis Wheezing Gastroparesis K31.84 Gastro-esophageal reflux disease without esophagitis K21.9 Surgical History Surgery Date(Month/Year) Hip fracture 07/31/2015 Fracture 08/07/2015
--- OUTSIDE RECORDS SUMMARY | 2024-07-13 11:19 | XMS_ITS ---
Author Organization [facility] ([address]) Address [address] [place] [address] Care Team Providers Care Employee Welfare Manager Name Role Phone Jose Blanco Primary Care Provider Unavailabl Hao Sam Unavailable [phone] [facility], Provider Unavailable Unavailab REASON FOR VISIT Multum To Medispan Conversion Encounter Medications Medication SIG (Take, Route, Frequency, Duration) Notes Start Date End Date Status Xanax 0.5 MG 1 tab(s) orally 3 times a day Active Prolia 60 MG/ML as directed subcutaneously every 6 months for 12 month(s) Active ZOFRAN 4 MG 1 TAB(S) ORALLY EVER Y 8 HOURS *Please review for potential replacement for e-prescription and drug interaction check* Active Nortriptyline HCl 25 MG 1 cap(s) orally 3 times a day for 30 day(s) Active lamoTRIgine 25 MG 1 TAB(S) ORALLY ONCE A DAY for 30 DAY(S) *Please review and pick correct strength-formulat ion from Medispan options. If intended option is not shown, discontinue and re-order from Quick Search* Active Reglan 5 MG 1 tab(s) orally 4 times a day (before meals and at bedtime) for 30 day(s) Active SIT (TRADITIONAL) VARIABLE PER SCHEDULE SC PER SCHEDULE for TO BE DETERMINED *Please review for potential replacement for e-prescription and drug interaction check* Active BUSPAR 15 mg QD *Please review for potential replacement for e-prescription and drug interaction check* Active NASAL WASHES N/A DIRECTED INTRANASALLY NEEDED for 30 *Please review for potential replacement for e-prescription and drug interaction check* Active Auvi-Q 0.3 MG/0.3ML 0.3 mg intramuscularly once for 1 dose(s) Active Auvi-Q 0.3 MG/0.3ML INJECT 0.3 MG INTRAMUSCULARLY DIRECTED for 30 Active NASONEX 50 MCG/INH 2 SPRAY(S) INTRANASALLY ONCE A DAY for 30 DAY(S) *Please review for potential replacement for e-prescription and drug interaction check* Active Patanase 665 MCG/INH 2 SPRAY(S) INTRANASALLY 2 TIMES A DAY, PRN for 30 DAY(S) *Please review and pick correct strength-formulat ion [facility]. If intended option is not shown, discontinue and re-order from Quick Search* Active PAZEO 0.7% 1 GTT IN EACH AFFECTED EYE ONCE A DAY for 30 DAY(S) *Please review for potential replacement for e-prescription and drug interaction check* Active ZyrTEC Allergy 10 MG 1 tablet PO QD for 30 days Active Omeprazole 40 MG 1 cap(s) orally once a day for 30 day(s) Active [place] Carbonate ER 450 MG 1 tab(s) orally 2 times a day for 30 day(s) Active Encounters Encounter Location Date Provider Diagnosis [address] [address] 08/09/2023 Provider ZZ-Migration Plan Of Treatment No Information Progress Notes * Tino MICHAELSOB:1955 (69 yo F)Acc No.[id number]:08/09/2023 Patient: Deepali DIAZ Provider: Jasmeet abernathy Migration :1955 A ge:68 Y S ex:Female Date:08/09/2023 Address:[address] [place], [place] [phone] Pcp:Jose Blanco Subjective: * Chief Complaints: * 1 . Multum To Medispan Conversion Encounter. * Medical History: * Medications: T aking ZyrTEC Allergy 10 MG Tablet 1 tablet PO QD , Taking NASONEX 50 MCG/INH SPRAY 2 SPRAY(S) INTRANASALLY ONCE A DAY , Notes to Pharmacist: *Please review for potential replacement for e-prescription and drug interaction check*, Taking Patanase 665 MCG/INH SPRAY 2 SPRAY(S) INTRANASALLY 2 TIMES A DAY, PRN , Notes to Pharmacist: *Please review and pick correct strength-formulation from [employer] options. If intended option is not shown, discontinue and re-order from Quick Search*, Taking NASAL WASHES N/A 1 QUART OF STERILIZED TAP WATER OR DISTILLED WATER, 1 TSP NACL, 1 PINCH OF BAKING SODA DIRECTED INTRANASALLY NEEDED , Notes to Pharmacist: *Please review for potential replacement for e-prescription and drug interaction check*, Taking Auvi-Q 0.3 MG/0.3ML Solution Auto-injector 0.3 mg intramuscularly once , Taking SIT (TRADITIONAL) VARIABLE SEE RECORD PER SCHEDULE SC PER SCHEDULE , Notes to Pharmacist: *Please review for potential replacement for e-prescription and drug interaction check*, Taking BUSPAR , Notes to Pharmacist: 15 mg QD *Please review for potential replacement for e-prescription and drug interaction check*, Taking Reglan 5 MG Tablet 1 tab(s) orally 4 times a day (before meals and at bedtime) , Taking Prolia 60 MG/ML Solution Prefilled Syringe as directed subcutaneously every 6 months , Taking ZOFRAN 4 MG TABLET 1 TAB(S) ORALLY EVERY 8 HOURS , Notes to Pharmacist: *Please review for potential replacement for e-prescription and drug interaction check*, Taking Nortriptyline HCl 25 MG Capsule 1 cap(s) orally 3 times a day , Taking lamoTRIgine 25 MG TABLET, DISINTEGRATING 1 TAB(S) ORALLY ONCE A DAY , Notes to Pharmacist: *Please review and pick correct strength-formulation from [employer] options. If intended option is not shown, discontinue and re-order from Quick Search*, Taking Xanax 0.5 MG Tablet 1 tab(s) orally 3 times a day , Taking Omeprazole 40 MG Capsule Delayed Release 1 cap(s) orally once a day , Taking [place] Carbonate ER 450 MG Tablet Extended Release 1 tab(s) orally 2 times a day , Taking PAZEO 0.7% SOLUTION 1 GTT IN EACH AFFECTED EYE ONCE A DAY , Notes to Pharmacist: *Please review for potential replacement for e-prescription and drug interaction check*, Taking Auvi-Q 0.3 MG/0.3ML Solution Auto-injector INJECT 0.3 MG INTRAMUSCULARLY DIRECTED Objective: * Vitals: Assessment: Plan: * Treatment: * Billing Information: * Visit Code: * Procedure Codes: * Electronic signature of Joyce HAAS-Migration on 07/13/2024 at 11:18 AM CDT Sign off status: Pending * Provider: Jasmeet abernathy Migration Date: 08/09/2023 Generated for Vianey villafuerte/Teodora/Emmie on: 07/13/2024 11:18 AM CDT
== END 2024-07-13 11:11 | disposition home or self-care (01) ==
PROVIDERS: Visit Provider Podiatrist Foot & Ankle Surgery
DX: M20.22 Hallux rigidus, left foot (principal)
CPT/HCPCS: 73630